=== PATIENT | male | born 1960 | race Caucasian/White ===

== ENCOUNTER 2017-06-30 05:47 | Day surgery (SDC) | payer BC, MEDICAID ==
[2017-06-30] MEDS ORDERED: MIDAZOLAM 1 MG/ML 2 ML INJ ×2 (09:25)
[2017-06-30] MEDS ORDERED: FENTAnyl 50 MCG/ML VIAL (09:25)
== END 2017-06-30 12:29 | disposition home or self-care (01) ==
LOC: GIL 05:47
DX: Z12.11 Encounter for screening for malignant neoplasm of colon (principal); K52.9 Noninfective gastroenteritis and colitis, unspecified; D12.6 Benign neoplasm of colon, unspecified; K29.50 Unspecified chronic gastritis without bleeding; I10 Essential (primary) hypertension
CPT/HCPCS: 43239; 88305

== ENCOUNTER 2018-01-11 01:39 | Emergency (ER) | payer OTHER, BC ==
[2018-01-11] MEDS: ALPRAZOLAM 1 MG TAB PO (04:05)
[2018-01-11] MEDS: ONDANSETRON (ODT) 4 MG TAB ODT (04:05)
== END 2018-01-11 04:30 | disposition home or self-care (01) ==
LOC: FTE 01:39
DX: F41.9 Anxiety disorder, unspecified (principal); I10 Essential (primary) hypertension; R11.0 Nausea; Z79.82 Long term (current) use of aspirin; Z87.891 Personal history of nicotine dependence
CPT/HCPCS: 99283; Z7502

== ENCOUNTER 2018-03-04 14:56 | Inpatient (IN) | payer OTHER ==
[2018-03-04] MEDS ORDERED: DILTIAZEM 25 MG INJ (15:02)
[2018-03-04] MEDS: DILTIAZEM 25 MG INJ IV ×2 (15:05→15:22)
[2018-03-04 15:12] LABS: ADD MAN DIFF? NO
[2018-03-04 15:14] LABS: BASOPHIL # 0.1 10^3/ul (0.0-0.1); BASOPHILS % 0.4 % (0.0-2.0); EOSINOPHILS % 0.2 % (0.0-7.0); HEMOGLOBIN 14.9 g/dl (14.0-18.0); LYMPHOCYTES # 1.1 10^3/ul (0.8-2.9); LYMPHOCYTES % 9.3 % (15.0-51.0); MEAN CORPUSCULAR HEMOGLOBIN 27.1 pg (29.0-33.0); MEAN CORPUSCULAR HGB CONC 32.4 g/dl (32.0-37.0); MEAN CORPUSCULAR VOLUME 83.8 fl (82.0-101.0); MONOCYTE # 0.6 10^3/ul (0.3-0.9); MONOCYTES % 4.7 % (0.0-11.0); NEUTROPHIL # 10.2 10^3/ul (1.6-7.5); NEUTROPHILS % 85.1 % (39.0-77.0); PLATELET COUNT 348 10^3/UL (140-415); RED BLOOD COUNT 5.49 10^6/ul (4.70-6.10); RED CELL DISTRIBUTION WIDTH 14.4 % (11.5-14.5)
[2018-03-04] MEDS: SOD CHLORIDE 0.9% 1,000 ML IV (15:24)
[2018-03-04] MEDS: ASPIRIN 81 MG TAB PO (15:32)
[2018-03-04 15:36] LABS: ALANINE AMINOTRANSFERASE 34 IU/L (13-69); ALBUMIN 4.7 g/dl (3.3-4.9); ALBUMIN/GLOBULIN RATIO 1.27; ALKALINE PHOSPHATASE 96 IU/L (42-121); ANION GAP 26 (8-16); ASPARTATE AMINO TRANSFERASE 55 IU/L (15-46); BILIRUBIN,INDIRECT 0.6 mg/dl (0-1.1); BILIRUBIN,TOTAL 0.6 mg/dl (0.2-1.3); BLOOD UREA NITROGEN 28 mg/dl (7-20); CALCIUM 9.8 mg/dl (8.4-10.2); CARBON DIOXIDE 19 mmol/L (21-31); CHLORIDE 100 mmol/L (97-110); CREATININE 0.91 mg/dl (0.61-1.24); GLUCOSE 118 mg/dl (70-220); LIPASE 57 U/L (23-300); POTASSIUM 4.1 mmol/L (3.5-5.1); SODIUM 141 mmol/L (135-144); TOTAL PROTEIN 8.4 g/dl (6.1-8.1)
[2018-03-04 15:47] LABS: B-TYPE NATRIURETIC PEPTIDE 68 PG/ML (0-125); TROPONIN-I < 0.012 ng/ml (0.000-0.120)
[2018-03-04] MEDS: LORAZEPAM 2 MG INJ IV (15:53)
[2018-03-04] MEDS: DILTIAZEM-D5W 125MG/125ML DRIP 125 ML IV (16:25)
[2018-03-04] MEDS ORDERED: DOCUSATE SODIUM 100 MG CAP PO (17:30)
[2018-03-04] MEDS ORDERED: ALPRAZOLAM 1 MG TAB PO (17:30)
[2018-03-04] MEDS ORDERED: HYDROCODONE/APAP (5/325) TAB PO (17:30)
[2018-03-04] MEDS ORDERED: ACETAMINOPHEN 325 MG TAB PO (17:30)
[2018-03-04] MEDS ORDERED: ONDANSETRON 4 MG INJ IV (17:30)
[2018-03-04] MEDS ORDERED: NITROGLYCERIN (SL) 0.4 MG TAB SL (17:30)
[2018-03-04] MEDS ORDERED: BISACODYL 10 MG SUPP PR (17:30)
[2018-03-04] MEDS ORDERED: MAGNESIUM HYDROXIDE 30ML CUP PO (17:30)
[2018-03-04] MEDS ORDERED: NACL 0.9% 3 ML SYG IV (17:30)
[2018-03-04] MEDS ORDERED: METOPROLOL 5 MG INJ IV (17:30)
[2018-03-04 17:55] LABS: INR 0.93; PROTIME 12.5 Sec (11.9-14.9)
[2018-03-04 17:57] LABS: MAGNESIUM 2.4 mg/dl (1.7-2.5)
[2018-03-04 18:14] LABS: FREE T4 (FREE THYROXINE) 1.93 ng/dl (0.64-1.79)
[2018-03-04] MEDS: DILTIAZEM 60 MG TAB PO (19:00)
[2018-03-04] MEDS: ATORVASTATIN 20 MG TAB PO (21:27)
[2018-03-04] MEDS: APIXABAN 5 MG TABLET PO (21:27)
[2018-03-04 23:14] LABS: CREATINE KINASE 285 IU/L (23-200)
[2018-03-04 23:25] LABS: CK INDEX 1.2; CK-MB 3.36 ng/ml (0.0-2.4); TROPONIN-I < 0.012 ng/ml (0.000-0.120)
[2018-03-05] MEDS: DIGOXIN 500 MCG INJ IV (03:25)
[2018-03-05] MEDS: PANTOPRAZOLE (EC) 40 MG TAB PO (05:28)
[2018-03-05] MEDS: DILTIAZEM 60 MG TAB PO ×2 (05:29)
[2018-03-05 07:23] LABS: CREATINE KINASE 222 IU/L (23-200)
[2018-03-05 07:35] LABS: ALANINE AMINOTRANSFERASE 34 IU/L (13-69); ALBUMIN 3.5 g/dl (3.3-4.9); ALBUMIN/GLOBULIN RATIO 1.09; ALKALINE PHOSPHATASE 70 IU/L (42-121); ANION GAP 15 (8-16); ASPARTATE AMINO TRANSFERASE 38 IU/L (15-46); BILIRUBIN,INDIRECT 0.9 mg/dl (0-1.1); BILIRUBIN,TOTAL 0.9 mg/dl (0.2-1.3); BLOOD UREA NITROGEN 28 mg/dl (7-20); CALCIUM 9.6 mg/dl (8.4-10.2); CARBON DIOXIDE 28 mmol/L (21-31); CHLORIDE 99 mmol/L (97-110); CHOL/HDL RATIO 4.2 RATIO; CHOLESTEROL 168 mg/dl (100-200); CREATININE 0.88 mg/dl (0.61-1.24); GLUCOSE 106 mg/dl (70-220); HDL CHOLESTEROL 40 mg/dl (30-78); LDL CHOLESTEROL,CALCULATED 99 mg/dl; MAGNESIUM 2.3 mg/dl (1.7-2.5); POTASSIUM 4.3 mmol/L (3.5-5.1); SODIUM 138 mmol/L (135-144); TOTAL PROTEIN 6.7 g/dl (6.1-8.1); TRIGLYCERIDES 145 mg/dl (0-149)
[2018-03-05 07:36] LABS: CK INDEX 1.1; CK-MB 2.44 ng/ml (0.0-2.4); TROPONIN-I 0.015 ng/ml (0.000-0.120)
[2018-03-05] MEDS: APIXABAN 5 MG TABLET PO ×2 (08:43→20:37)
[2018-03-05] MEDS: DILTIAZEM (CD) 240 MG CAP PO (12:56)
[2018-03-05] MEDS: ATORVASTATIN 20 MG TAB PO (20:37)
[2018-03-06] MEDS: PANTOPRAZOLE (EC) 40 MG TAB PO (05:36)
[2018-03-06 06:43] LABS: ANION GAP 12 (8-16); BLOOD UREA NITROGEN 19 mg/dl (7-20); CARBON DIOXIDE 28 mmol/L (21-31); CHLORIDE 104 mmol/L (97-110); CREATININE 0.68 mg/dl (0.61-1.24); GLUCOSE 136 mg/dl (70-220); POTASSIUM 3.4 mmol/L (3.5-5.1); SODIUM 141 mmol/L (135-144)
[2018-03-06] MEDS: APIXABAN 5 MG TABLET PO (08:34)
[2018-03-06] MEDS: DILTIAZEM (CD) 240 MG CAP PO (08:34)
[2018-03-06] MEDS: REGADENOSON 0.4 MG/5 ML SYG (13:59)
[2018-03-06] MEDS: POTASSIUM CHLORIDE (SR) 20 MEQ TAB PO (14:23)
== END 2018-03-06 18:13 | disposition home or self-care (01) | DRG 310 ==
LOC: E/R 14:56 → TEL 17:28
DX: I48.0 Paroxysmal atrial fibrillation (principal); I10 Essential (primary) hypertension; E78.5 Hyperlipidemia, unspecified; E66.9 Obesity, unspecified; Z68.37 Body mass index [BMI] 37.0-37.9, adult
CPT/HCPCS: 36415; 71045; 78452; 80048; 80053; 80061; 82550; 82553; 83690; 83735; 83880; 84439; 84443; 84484; 85025; 85610; 85730; 93005; 93017; 93306; 96361; 96365; 96375; 99291-25